=== PATIENT | male | born 1985 | race Caucasian/White ===

== ENCOUNTER 2020-11-25 09:47 | Outpatient (RCR) | payer BC | END 2021-01-16 15:50 | disposition home or self-care (01) | DX: M54.5 Low back pain (principal) ==

== ENCOUNTER 2021-07-22 09:21 | Outpatient (RCR) | payer BC | END 2021-07-24 | disposition home or self-care (01) | DX: M54.16 Radiculopathy, lumbar region (principal) ==

== ENCOUNTER 2021-08-06 08:04 | Outpatient (RCR) | payer BC | END 2021-08-24 | disposition home or self-care (01) | DX: M54.50 Low back pain, unspecified (principal) ==